=== PATIENT | male | born 1950 | race Caucasian/White ===

== ENCOUNTER 2018-05-28 16:01 | Outpatient (REF) | payer MEDICARE, SELFPAY ==
[2018-05-28 22:16] LABS: ALT 437 U/L (12-78); AST 262 U/L (15-37); Albumin 3.7 g/dL (3.4-5.0); Alkaline Phosphatase 90 U/L (46-116); Anion Gap 6.3 mmol/L (3-11); BUN 15 mg/dL (7-18); Bilirubin, Total 0.6 mg/dL (0.2-1.0); CO2 30.7 mmol/L (21.0-32.0); CREATININE 0.94 mg/dL (0.70-1.30); Chloride 99 mmol/L (98-107); Cholesterol 119 mg/dL (50-200); Glucose 86 mg/dL (70-100); HDL Cholesterol 42 mg/dL (40-60); LDL CHOLESTEROL 72 mg/dL (<100); Potassium 4.2 mmol/L (3.5-5.1); Sodium 136 mmol/L (136-145); Total Protein 7.1 g/dL (6.4-8.2)
[2018-05-28 22:28] LABS: Triglyceride < 25 mg/dL (30-150)
[2018-05-28 22:38] LABS: Uric Acid 5.8 mg/dL (3.5-7.2)
== END 2018-05-28 16:21 ==
LOC: NCHCN 16:01
PROVIDERS: PCP Family Medicine; Visit Provider Family Medicine
DX: F17.201 Nicotine dependence, unspecified, in remission (principal); R74.0 Nonspecific elevation of levels of transaminase and lactic acid dehydrogenase [LDH]; F10.11 Alcohol abuse, in remission; M10.9 Gout, unspecified; Z13.6 Encounter for screening for cardiovascular disorders
CPT/HCPCS: 80053; 80061; 83721; 84550

== ENCOUNTER 2018-10-01 15:41 | Outpatient (REF) | payer MEDICARE, MEDICAID, SELFPAY ==
[2018-10-01 20:37] LABS: INR 1.1 (0.9-1.1); Prothrombin Time 11.3 sec (9.3-11.0)
[2018-10-01 20:53] LABS: ALT 333 U/L (12-78); AST 184 U/L (15-37); Albumin 3.7 g/dL (3.4-5.0); Alkaline Phosphatase 102 U/L (46-116); Bilirubin, Total 0.5 mg/dL (0.2-1.0); Total Protein 7.2 g/dL (6.4-8.2)
[2018-10-01 21:06] LABS: Bilirubin, Direct 0.17 mg/dL (0.00-0.20)
== END 2018-10-01 16:01 ==
LOC: NCHCN 15:41
PROVIDERS: PCP Family Medicine; Visit Provider Registered Nurse
DX: R79.89 Other specified abnormal findings of blood chemistry (principal); B19.20 Unspecified viral hepatitis C without hepatic coma
CPT/HCPCS: 80076; 85610

== ENCOUNTER 2018-10-16 10:02 | Outpatient (REF) | payer MEDICARE, MEDICAID, SELFPAY ==
[2018-10-20 21:35] LABS: HBV DNA Detect/Quant, PCR Undetected IU/mL (Undetected)
== END 2018-10-16 10:22 ==
LOC: NCHCN 10:02
PROVIDERS: PCP Family Medicine; Visit Provider Registered Nurse
DX: B19.20 Unspecified viral hepatitis C without hepatic coma (principal); R79.89 Other specified abnormal findings of blood chemistry
CPT/HCPCS: 87517

== ENCOUNTER 2018-11-02 14:48 | Outpatient (REF) | payer MEDICARE, MEDICAID, SELFPAY ==
[2018-11-02 21:02] LABS: HCT 39.4 % (40.0-50.0); HGB 13.3 g/dL (13.5-17.5); Mean Corp. HGB Concentration 33.8 g/dL (32.0-36.0); Mean Corpuscular Hemoglobin 31.8 pg (27.0-33.0); Mean Corpuscular Volume 94.3 fL (80-95); Mean Platelet Volume 11.9 fL (8.0-11.0); Platelet Count 208 x1000/uL (130-400); RBC 4.18 m/cumm (4.50-6.00); RBC Distribution Width 13.3 % (11.8-14.1); White Blood Cell Count 5.72 k/cumm (4.4-10.8)
[2018-11-02 21:21] LABS: ALT 59 U/L (12-78); AST 39 U/L (15-37); Albumin 3.5 g/dL (3.4-5.0); Alkaline Phosphatase 99 U/L (46-116); BUN 17 mg/dL (7-18); Bilirubin, Total 0.5 mg/dL (0.2-1.0); CREATININE 0.98 mg/dL (0.70-1.30); Calcium 9.1 mg/dL (8.5-10.1); Chloride 100 mmol/L (98-107); Glucose 114 mg/dL (70-100); Potassium 4.1 mmol/L (3.5-5.1); Sodium 138 mmol/L (136-145); Total Protein 6.9 g/dL (6.4-8.2)
== END 2018-11-02 15:08 ==
LOC: NCHCN 14:48
PROVIDERS: PCP Family Medicine; Visit Provider Registered Nurse
DX: B19.20 Unspecified viral hepatitis C without hepatic coma (principal)
CPT/HCPCS: 80053; 85027; 85610

== ENCOUNTER 2018-11-16 17:21 | Outpatient (REF) | payer MEDICARE, MEDICAID, SELFPAY ==
[2018-11-16 21:17] LABS: HCT 38.9 % (40.0-50.0); HGB 13.2 g/dL (13.5-17.5); Mean Corp. HGB Concentration 33.9 g/dL (32.0-36.0); Mean Corpuscular Hemoglobin 31.7 pg (27.0-33.0); Mean Corpuscular Volume 93.5 fL (80-95); Mean Platelet Volume 11.9 fL (8.0-11.0); Platelet Count 210 x1000/uL (130-400); RBC 4.16 m/cumm (4.50-6.00); White Blood Cell Count 5.58 k/cumm (4.4-10.8)
[2018-11-16 21:21] LABS: INR 1.1 (0.9-1.1)
[2018-11-16 21:22] LABS: ALT 31 U/L (12-78); AST 28 U/L (15-37); Albumin 3.6 g/dL (3.4-5.0); Alkaline Phosphatase 108 U/L (46-116); Anion Gap 8.1 mmol/L (3-11); BUN 17 mg/dL (7-18); Bilirubin, Total 0.5 mg/dL (0.2-1.0); CO2 28.9 mmol/L (21.0-32.0); CREATININE 0.91 mg/dL (0.70-1.30); Calcium 8.9 mg/dL (8.5-10.1); Chloride 100 mmol/L (98-107); Glucose 105 mg/dL (70-100); Potassium 4.1 mmol/L (3.5-5.1); Sodium 137 mmol/L (136-145)
[2018-11-18 15:15] LABS: HCV RNA Detection Quantitative 20 IU/mL (UNDECT)
== END 2018-11-16 17:41 ==
LOC: NCHCN 17:21
PROVIDERS: PCP Family Medicine; Visit Provider Registered Nurse
DX: B19.20 Unspecified viral hepatitis C without hepatic coma (principal); R79.89 Other specified abnormal findings of blood chemistry
CPT/HCPCS: 80053; 85027; 85610; 87522

== ENCOUNTER 2018-12-04 14:43 | Outpatient (REF) | payer MEDICARE, MEDICAID, SELFPAY ==
[2018-12-04 21:00] LABS: HCT 39.2 % (40.0-50.0); HGB 13.3 g/dL (13.5-17.5); Mean Corp. HGB Concentration 33.9 g/dL (32.0-36.0); Mean Corpuscular Hemoglobin 31.7 pg (27.0-33.0); Mean Corpuscular Volume 93.3 fL (80-95); Mean Platelet Volume 11.7 fL (8.0-11.0); Platelet Count 206 x1000/uL (130-400); RBC Distribution Width 12.9 % (11.8-14.1); White Blood Cell Count 4.88 k/cumm (4.4-10.8)
[2018-12-04 21:26] LABS: Iron 153 ug/dL (50-175); Total Iron Binding Capacity 309 ug/dL (250-450); Transferrin Sat 50 % (20-55)
[2018-12-04 21:41] LABS: Ferritin 110 ng/mL (8-388)
== END 2018-12-04 15:03 ==
LOC: NCHCN 14:43
PROVIDERS: PCP Family Medicine; Visit Provider Registered Nurse
DX: E61.1 Iron deficiency (principal); B19.20 Unspecified viral hepatitis C without hepatic coma
CPT/HCPCS: 85027; 82728; 83540; 83550

== ENCOUNTER 2019-01-11 15:37 | Outpatient (REF) | payer MEDICARE, MEDICAID, SELFPAY ==
[2019-01-14 12:51] LABS: HCV Genotype Undetected (Undetected)
== END 2019-01-11 15:57 ==
LOC: NCHCN 15:37
PROVIDERS: PCP Family Medicine; Visit Provider Registered Nurse
DX: B19.20 Unspecified viral hepatitis C without hepatic coma (principal)
CPT/HCPCS: 86803; 87521

== ENCOUNTER 2019-01-19 15:51 | Outpatient (REF) | payer MEDICARE, MEDICAID, SELFPAY ==
[2019-01-21 14:47] LABS: HCV RNA Detection Quantitative Undetected IU/mL (UNDECT)
== END 2019-01-19 16:11 ==
LOC: NCHCN 15:51
PROVIDERS: PCP Family Medicine; Visit Provider Registered Nurse
DX: B19.20 Unspecified viral hepatitis C without hepatic coma (principal)
CPT/HCPCS: 87522

== ENCOUNTER 2019-04-06 14:08 | Outpatient (REF) | payer MEDICARE, MEDICAID, SELFPAY ==
[2019-04-08 14:21] LABS: HCV RNA Detection Quantitative 0 IU/mL (Undetected)
== END 2019-04-06 14:28 ==
LOC: NCHCN 14:08
PROVIDERS: PCP Family Medicine; Visit Provider Registered Nurse
DX: B19.20 Unspecified viral hepatitis C without hepatic coma (principal)
CPT/HCPCS: 87522

== ENCOUNTER 2022-12-26 11:01 | Outpatient (REF) | payer MEDICARE, MEDICAID, SELFPAY ==
[2022-12-26 15:55] LABS: HCT 36.9 % (40.0-50.0); HGB 12.7 g/dL (13.5-17.5); MCH 31.6 pg (27.0-33.0); MCHC 34.4 % (32.0-36.0); MCV 92 fL (80-95); MPV 10.1 fL (8.0-11.0); Platelet Count 256 10^3/uL (130-400); RBC 4.02 10^6/uL (4.36-5.78); RDW 12.6 % (11.8-14.1); RDW-SD 42.5 fL; WBC 4.65 10^3/uL (4.4-10.8)
[2022-12-26 17:05] LABS: Anion Gap 6.7 mmol/L (3-11); BUN 12 mg/dL (7-18); CO2 31.3 mmol/L (21.0-32.0); Calcium 9.1 mg/dL (8.5-10.1); Calculated LDL 83 mg/dL (<100); Chloride 95 mmol/L (98-107); Cholesterol 146 mg/dL (<200); Estimated GFR 79.97 (mL/min/1.73m2); Glucose 86 mg/dL (74-106); HDL Cholesterol 52 mg/dL (40-60); Potassium 3.7 mmol/L (3.5-5.1); Sodium 133 mmol/L (136-145); TSH 3.41 uIU/mL (0.36-3.74); Triglyceride 59 mg/dL (<150)
== END 2022-12-26 11:02 | disposition home or self-care (01) ==
LOC: NCHCN 11:01
PROVIDERS: PCP Family Medicine; Visit Provider Registered Nurse
DX: I10 Essential (primary) hypertension (principal); Z86.2 Personal history of diseases of the blood and blood-forming organs and certain disorders involving the immune mechanism
CPT/HCPCS: 80048; 80061; 85027; 84443

== ENCOUNTER 2023-01-09 10:04 | Outpatient (REF) | payer MEDICARE, MEDICAID, SELFPAY ==
[2023-01-09 16:30] LABS: Iron 111 ug/dL (65-175); Total Iron Binding Capacity 299 ug/dL (250-450)
[2023-01-09 17:18] LABS: Anion Gap 5.1 mmol/L (3-11); BUN 13 mg/dL (7-18); CO2 29.9 mmol/L (21.0-32.0); Calcium 9.2 mg/dL (8.5-10.1); Chloride 98 mmol/L (98-107); Estimated GFR 79.97 (mL/min/1.73m2); Ferritin 115 ng/mL (26-388); Glucose 97 mg/dL (74-106); Potassium 4.3 mmol/L (3.5-5.1); Sodium 133 mmol/L (136-145); Vitamin B12 439 pg/mL (193-986)
[2023-01-09 17:29] LABS: Folate > 20.0 ng/mL (8.6-20.0)
== END 2023-01-09 10:05 | disposition home or self-care (01) ==
LOC: NCHCN 10:04
PROVIDERS: PCP Family Medicine; Visit Provider Registered Nurse
DX: D64.9 Anemia, unspecified (principal); R03.0 Elevated blood-pressure reading, without diagnosis of hypertension; Z86.2 Personal history of diseases of the blood and blood-forming organs and certain disorders involving the immune mechanism
CPT/HCPCS: 80048; 82607; 82728; 82746; 83540; 83550

== ENCOUNTER 2024-12-08 13:59 | Outpatient (REF) | payer MEDICARE, MEDICAID, SELFPAY ==
[2024-12-08 15:36] LABS: ALT 24 U/L (16-63); AST 34 U/L (15-37); Albumin 4.1 g/dL (3.4-5.0); Alkaline Phosphatase 82 U/L (46-116); Anion Gap 6.9 mmol/L (3-11); BUN 15 mg/dL (7-18); Bilirubin, Total 0.5 mg/dL (0.2-1.0); CO2 29.1 mmol/L (21.0-32.0); Calcium 9.1 mg/dL (8.5-10.1); Chloride 97 mmol/L (98-107); Estimated GFR 92.87 (mL/min/1.73m2); Glucose 112 mg/dL (74-106); Potassium 4.2 mmol/L (3.5-5.1); Sodium 133 mmol/L (136-145); Total Protein 7.7 g/dL (6.4-8.2)
== END 2024-12-08 14:00 | disposition home or self-care (01) ==
LOC: NCHCN 13:59
PROVIDERS: PCP Family Medicine; Visit Provider Family Medicine
DX: I10 Essential (primary) hypertension (principal)
CPT/HCPCS: 80053